=== PATIENT | female | born 1970 | race Caucasian/White ===

== ENCOUNTER 2016-10-04 12:37 | Emergency (ER) | payer BC ==
[~2016-10-04] VITALS: Ht 165.1 cm; Wt 90.7 kg
--- NOTE | ~2016-10-04 | EKG ---
[place] [address] 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 : 1970 Requested By: Paddy Rocha Order Number: [id number] MD: Curt Avalos Measurements Intervals [place] Rate: 91 P: 5 AK: 155 QRS: 33 QRSD: 95 T: -7 QT: 390 QTc: 480 Interpretive Statements Sinus rhythm Low voltage, precordial leads RSR' in V1 or V2, right VCD Nonspecific ST and T-wave abnormality Borderline prolonged QT interval Compared to ECG 06/11/2015 07:34:09 No significant change was found Electronically Signed On 10-05-2016 7:42:18 CDT by Curt Avalos [email or web address] <ELECTRONICALLY SIGNED> By: Curt Avalos MD, [facility] 10/05/16 0742 1251 1251 Curt Avalos MD, [facility] /EPI
[~2016-10-04 12:37] MED LIST: ALBUTEROL2.5 MG/0.1 INH; ATIVAN1 MG PO; AZITHROMYCIN 2250 MG PO; CELEXA20 MG PO; IBUPROFEN 800800 MG PO; LORTAB 5 MG/5001 TA1 PO; PERCOCET 5-3251 EACH PO; [UNRECOGNIZED DRUG - OTHER] PO; [UNRECOGNIZED DRUG - REMARK] PO
[2016-10-04 12:38] VITALS: BP 127/89
[2016-10-04 13:21] LABS: ABSOLUTE NEUTROPHILS 4.8 thou/uL (1.4-8.2); BASOPHILS 0.8 % (0.0-2.0); EOSINOPHILS 1.6 % (0.0-3.0); HEMATOCRIT 38.5 % (37.0-47.0); HEMOGLOBIN 13.2 gm/dL (12.0-15.0); MCH 28.4 pg (26.0-34.0); MCHC 34.2 g/dL (28.0-37.0); MCV 83.1 fL (80.0-100.0); MONOCYTES 6.9 % (1.0-8.0); PLATELET COUNT 311 thou/uL (150-400); POLYS 58.7 % (36.0-66.0); RBC 4.64 mil/uL (4.20-5.00); RDW 14.5 % (10.5-14.5); WBC 8.1 thou/uL (4.0-11.0)
[2016-10-04 13:22] LABS: MANUAL DIFF NO
[2016-10-04 13:25] LABS: CALCIUM 8.8 mg/dL (8.5-10.1); CREATININE 0.8 mg/dL (0.6-1.0); POTASSIUM 3.7 mmol/L (3.5-5.1)
[2016-10-04 13:31] LABS: ALBUMIN 3.3 g/dL (3.4-5.0); TOTAL BILIRUBIN 0.3 mg/dL (<0.1-1.0); TOTAL PROTEIN 6.7 g/dL (6.4-8.2)
== END 2016-10-04 13:58 | disposition home or self-care (01) ==
LOC: ER 12:37
PROVIDERS: Emergency Medicine
DX: G40.909 Epilepsy, unspecified, not intractable, without status epilepticus (principal); F31.9 Bipolar disorder, unspecified; F41.9 Anxiety disorder, unspecified; J45.909 Unspecified asthma, uncomplicated; Z98.890 Other specified postprocedural states; Z88.5 Allergy status to narcotic agent; Z88.1 Allergy status to other antibiotic agents; Z90.721 Acquired absence of ovaries, unilateral

== ENCOUNTER 2016-12-23 17:18 | Emergency (ER) | payer BC ==
[~2016-12-23] VITALS: Ht 165.1 cm; Wt 104.3 kg
--- NOTE | ~2016-12-23 | EKG ---
[address] [address] ELECTROCARDIOGRAM REPORT Name: MARY LONGHANIE Harjinder Room #: [facility]#: [id number] Admission: 12/23/16 Attend Phys: Discharge: 12/23/16 Date of : 74 Report #: [id number] THIS REPORT FOR: //name// [facility] ED Test Date: 2016-12-23 Test Time: 17:51:19 Pat Name: MELLY LONG Department: Room: Gender: F Professor Of Historical Theology: Sarah CHRISTIANSON : 1970 Requested By: Marley Townsend Order Number: [id number] MD: Miguel Layne Measurements Intervals [place] Rate: 107 P: 19 [place]: 147 QRS: 40 QRSD: 100 T: 2 QT: 346 QTc: 462 Interpretive Statements Sinus tachycardia Low voltage, precordial leads RSR' in V1 or V2, probably normal variant Nonspecific T abnrm, anterolateral leads Compared to ECG 10/04/2016 12:51:41 Sinus rhythm no longer present T-wave abnormality no longer present Electronically Signed On 12-25-2016 22:12:05 CDT by Miguel Layne [email or web address] <ELECTRONICALLY SIGNED> By: Miguel Layne MD 12/25/16 2212 [id number] 175 Miguel Layne MD /EPI
[2016-12-23 17:57] LABS: ABSOLUTE NEUTROPHILS 6.5 thou/uL (1.4-8.2); BASOPHILS 1.3 % (0.0-2.0); EOSINOPHILS 1.3 % (0.0-3.0); HEMATOCRIT 38.9 % (37.0-47.0); HEMOGLOBIN 13.3 gm/dL (12.0-15.0); LYMPHOCYTES 35.4 % (24.0-44.0); MANUAL DIFF NO; MCH 28.8 pg (26.0-34.0); MCHC 34.3 g/dL (28.0-37.0); MONOCYTES 5.7 % (1.0-8.0); POLYS 56.3 % (36.0-66.0); RBC 4.62 mil/uL (4.20-5.00); RDW 14.9 % (10.5-14.5); WBC 12.3 thou/uL (4.0-11.0)
[2016-12-23 18:04] LABS: ANION GAP 9 mmol/L (7-16); BUN 11 mg/dL (7-18); CALCIUM 9.1 mg/dL (8.5-10.1); CHLORIDE 103 mmol/L (98-107); CO2 27 mmol/L (21-32); CREATININE 0.9 mg/dL (0.6-1.0); GLUCOSE 126 mg/dL (74-106); POTASSIUM 4.3 mmol/L (3.5-5.1); SODIUM 139 mmol/L (136-145)
[2016-12-23 18:12] LABS: ALBUMIN 3.4 g/dL (3.4-5.0); ALKALINE PHOSPHATASE 135 U/L (46-116); SGOT 48 U/L (15-37); SGPT 45 U/L (30-65); TOTAL BILIRUBIN 0.3 mg/dL (<0.1-1.0); TOTAL PROTEIN 7.4 g/dL (6.4-8.2); TROPONIN-I < 0.04 ng/mL (<0.04-0.07)
[2016-12-23 18:18] LABS: PLATELET COUNT 306 thou/uL (150-400)
[2016-12-23 20:35] VITALS: BP 117/69
== END 2016-12-23 20:35 | disposition home or self-care (01) ==
LOC: ER 17:18
PROVIDERS: Nurse Practitioner Family
DX: F41.9 Anxiety disorder, unspecified (principal); F41.0 Panic disorder [episodic paroxysmal anxiety]; J45.990 Exercise induced bronchospasm; Z90.89 Acquired absence of other organs; G47.30 Sleep apnea, unspecified; Z90.721 Acquired absence of ovaries, unilateral; Z90.710 Acquired absence of both cervix and uterus; Z88.5 Allergy status to narcotic agent; Z88.8 Allergy status to other drugs, medicaments and biological substances

== ENCOUNTER 2017-02-07 15:17 | Emergency (ER) | payer BC ==
[~2017-02-07] VITALS: Ht 162.6 cm; Wt 106.6 kg
--- NOTE | ~2017-02-07 | EKG ---
[facility] [place] [address] ELECTROCARDIOGRAM REPORT Name: MELLY LONG Room #: 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: [facility] : 1970 Requested By: Cielo Rubio Order Number: [id number] MD: Curt Avalos Measurements Intervals [place] Rate: 92 P: 17 SC: 145 QRS: 52 QRSD: 96 T: 9 QT: 326 QTc: 404 Interpretive Statements Sinus rhythm Low voltage, precordial leads RSR' in V1 or V2, right VCD Nonspecific ST and T abnormalities Compared to ECG 12/23/2016 17:51:19 No significant change was found Electronically Signed On 02-07-2017 17:21:34 CDT by Curt Avalos [email or web address] <ELECTRONICALLY SIGNED> By: Curt Avalos MD, [facility] 02/07/17 3963 1538 1538 Curt Avalos MD, [facility] /EPI
[2017-02-07] MEDS ORDERED: LASIX 20 MG TAB20 MG PO (15:26)
[2017-02-07] MEDS ORDERED: KLOR-CON 1010 MEQ PO (15:26)
[2017-02-07 16:14] LABS: ABSOLUTE NEUTROPHILS 6.8 thou/uL (1.4-8.2); BASOPHILS 0.7 % (0.0-2.0); HEMATOCRIT 40.5 % (37.0-47.0); HEMOGLOBIN 13.7 gm/dL (12.0-15.0); LYMPHOCYTES 31.3 % (24.0-44.0); MCH 28.5 pg (26.0-34.0); MCHC 33.8 g/dL (28.0-37.0); MCV 84.4 fL (80.0-100.0); MONOCYTES 7.5 % (1.0-8.0); PLATELET COUNT 323 thou/uL (150-400); POLYS 59.5 % (36.0-66.0); RDW 14.5 % (10.5-14.5); WBC 11.4 thou/uL (4.0-11.0)
[2017-02-07 16:16] LABS: MANUAL DIFF NO
[2017-02-07 16:24] LABS: CALCIUM 8.8 mg/dL (8.5-10.1); CREATININE 0.7 mg/dL (0.6-1.0); POTASSIUM 3.9 mmol/L (3.5-5.1)
[2017-02-07 16:29] LABS: ALBUMIN 3.6 g/dL (3.4-5.0); TOTAL BILIRUBIN 0.3 mg/dL (<0.1-1.0); TOTAL PROTEIN 7.1 g/dL (6.4-8.2)
[2017-02-07 16:30] LABS: URINE BILIRUBIN NEGATIVE (Negative); URINE BLOOD NEGATIVE (Negative); URINE COLOR YELLOW; URINE GLUCOSE-RANDOM* NEGATIVE (Negative); URINE KETONES TRACE (Negative); URINE NITRITE NEGATIVE (Negative); URINE PROTEIN (DIPSTICK) NEGATIVE (Negative); URINE UROBILINOGEN 0.2 E.U./dl (0.2-1.0)
[2017-02-07 16:37] LABS: AMP/METHAMP Negative (Negative); BARBITURATES Negative (Negative); BENZODIAZEPINES Negative (Negative); COCAINE Negative (Negative); METHADONE Negative (Negative); OPIATES Negative (Negative); PCP Negative (Negative); THC Negative (Negative)
[2017-02-07] MEDS ORDERED: FLEXERIL PO (18:33)
[2017-02-07 19:00] VITALS: BP 103/70
== END 2017-02-07 19:00 | disposition home or self-care (01) ==
LOC: ER 15:17
PROVIDERS: Physician Assistant
DX: R11.0 Nausea (principal); R07.9 Chest pain, unspecified; M54.6 Pain in thoracic spine; M54.5 Low back pain; F41.0 Panic disorder [episodic paroxysmal anxiety]; F31.9 Bipolar disorder, unspecified; G47.30 Sleep apnea, unspecified; J45.909 Unspecified asthma, uncomplicated; Z90.49 Acquired absence of other specified parts of digestive tract; Z90.721 Acquired absence of ovaries, unilateral; Z90.89 Acquired absence of other organs; Z88.5 Allergy status to narcotic agent; Z88.2 Allergy status to sulfonamides

== ENCOUNTER 2018-05-14 08:42 | Emergency (ER) | payer BC ==
[~2018-05-14] VITALS: Ht 162.6 cm; Wt 108.5 kg
[~2018-05-14 08:42] MED LIST changes: +FLEXERIL PO; +KLOR-CON 1010 MEQ PO; +LASIX 20 MG TAB20 MG PO
[2018-05-14] MEDS ORDERED: PEPCID20 MG PO (09:11)
[2018-05-14] MEDS ORDERED: PREDNISONE 20 M20 MG PO (09:11)
[2018-05-14 11:00] VITALS: BP 141/80
== END 2018-05-14 11:00 | disposition home or self-care (01) ==
LOC: ER 08:42
DX: L50.0 Allergic urticaria (principal); F41.9 Anxiety disorder, unspecified; F31.9 Bipolar disorder, unspecified; J45.909 Unspecified asthma, uncomplicated; Z90.49 Acquired absence of other specified parts of digestive tract; G47.30 Sleep apnea, unspecified; Z88.2 Allergy status to sulfonamides; Z88.5 Allergy status to narcotic agent; Z91.041 Radiographic dye allergy status

== ENCOUNTER 2018-05-15 21:02 | Emergency (ER) | payer BC ==
[~2018-05-15] VITALS: Ht 162.6 cm; Wt 108.6 kg
[~2018-05-15 21:02] MED LIST changes: +PEPCID20 MG PO; +PREDNISONE 20 M20 MG PO
[2018-05-15 21:37] LABS: HEMATOCRIT 44.1 % (37.0-47.0); HEMOGLOBIN 15.1 gm/dL (12.0-15.0); MCH 29.2 pg (26.0-34.0); MCHC 34.3 g/dL (28.0-37.0); MCV 85.1 fL (80.0-100.0); PLATELET COUNT 356 thou/uL (150-400); RBC 5.18 mil/uL (4.20-5.00); RDW 15.3 % (10.5-14.5); WBC 20.6 thou/uL (4.0-11.0)
[2018-05-15 21:42] LABS: CALCIUM 8.8 mg/dL (8.5-10.1); CREATININE 0.8 mg/dL (0.6-1.0)
[2018-05-15 22:15] LABS: ABSOLUTE NEUTROPHILS 17.1 thou/uL (1.4-8.2)
[2018-05-15 22:17] LABS: PLATELET ESTIMATE NORMAL
[2018-05-16] VITALS: BP 137/84
== END 2018-05-16 00:01 | disposition home or self-care (01) ==
LOC: ER 21:02
PROVIDERS: Emergency Medicine
DX: L29.9 Pruritus, unspecified (principal); F41.0 Panic disorder [episodic paroxysmal anxiety]; F31.9 Bipolar disorder, unspecified; J45.909 Unspecified asthma, uncomplicated; G47.30 Sleep apnea, unspecified; Z90.710 Acquired absence of both cervix and uterus; Z90.49 Acquired absence of other specified parts of digestive tract; Z90.721 Acquired absence of ovaries, unilateral; Z90.89 Acquired absence of other organs; Z88.5 Allergy status to narcotic agent; Z88.2 Allergy status to sulfonamides; Z91.041 Radiographic dye allergy status

== ENCOUNTER 2019-04-19 10:37 | Emergency (ER) | payer BC ==
[~2019-04-19] VITALS: Ht 170.2 cm; Wt 112.0 kg
[2019-04-19] MEDS ORDERED: ATIVAN2 MG PO (10:45)
[2019-04-19] MEDS ORDERED: LEXAPRO20 MG PO (10:45)
[2019-04-19 10:56] LABS: ABSOLUTE NEUTROPHILS 4.8 thou/uL (1.4-8.2); BASOPHILS 0.9 % (0.0-2.0); HEMATOCRIT 42.2 % (37.0-47.0); HEMOGLOBIN 14.1 gm/dL (12.0-15.0); LYMPHOCYTES 31.3 % (24.0-44.0); MCH 28.6 pg (26.0-34.0); MCHC 33.5 g/dL (28.0-37.0); MCV 85.4 fL (80.0-100.0); MONOCYTES 6.7 % (1.0-8.0); PLATELET COUNT 319 thou/uL (150-400); POLYS 60.1 % (36.0-66.0); RBC 4.94 mil/uL (4.20-5.00); RDW 14.1 % (10.5-14.5); WBC 7.9 thou/uL (4.0-11.0)
[2019-04-19 11:05] LABS: CALCIUM 9.3 mg/dL (8.5-10.1); CREATININE 0.8 mg/dL (0.6-1.0); POTASSIUM 3.9 mmol/L (3.5-5.1)
[2019-04-19 13:45] VITALS: BP 136/79
--- NOTE | 2019-04-20 10:46 | EKG ---
[place] [address] [facility] [place] [address] ELECTROCARDIOGRAM REPORT Name: MARY LONGHANIE Harjinder Room #: [facility]#: [id number] Admission: 04/19/19 Attend Phys: Discharge: 04/19/19 Date of : 74 Report #: [id number] THIS REPORT FOR: //name// [facility] ED Test Date: 2019-04-19 Test Time: 10:44:03 Pat Name: MELLY LONG Department: Room: Gender: F Laser Specialist: KMZoila : 1970 Requested By: Chilo Yepez Order Number: [id number] MD: Miguel Layne Measurements Intervals [place] Rate: 103 P: 27 SC: 156 QRS: 61 QRSD: 95 T: -12 QT: 353 QTc: 462 Interpretive Statements Sinus tachycardia Low voltage, precordial leads RSR' in V1 or V2, right VCD or RVH Borderline T abnormalities, diffuse leads Compared to ECG 02/07/2017 15:38:02 Right ventricular hypertrophy now present Sinus rhythm no longer present T-wave abnormality still present Electronically Signed On 04-20-2019 10:45:39 MACHINE HOSTLER by Miguel Layne [email or web address] <ELECTRONICALLY SIGNED> By: Miguel Layne MD 04/20/19 1045 1044 1044 Miguel Layne MD /EPI
== END 2019-04-19 14:29 | disposition home or self-care (01) ==
LOC: ER 10:37
PROVIDERS: Student in an Organized Health Care Education/Training Program
DX: R25.1 Tremor, unspecified (principal); E66.9 Obesity, unspecified; G47.30 Sleep apnea, unspecified; F41.9 Anxiety disorder, unspecified; F31.9 Bipolar disorder, unspecified; Z68.38 Body mass index [BMI] 38.0-38.9, adult; Z90.49 Acquired absence of other specified parts of digestive tract; Z90.721 Acquired absence of ovaries, unilateral; Z91.048 Other nonmedicinal substance allergy status; Z88.1 Allergy status to other antibiotic agents; Z88.2 Allergy status to sulfonamides; Z88.6 Allergy status to analgesic agent; Z88.8 Allergy status to other drugs, medicaments and biological substances

== ENCOUNTER → 2020-11-20 | Outpatient (CLI) | payer BC ==
[~2020-11-20] MED LIST changes: +ATIVAN2 MG PO; +LEXAPRO20 MG PO
== END ==
LOC: BC 15:52
PROVIDERS: ATTEND Family Medicine
DX: Z12.31 Encounter for screening mammogram for malignant neoplasm of breast (principal)